=== PATIENT | male | born 1960 | race American Indian/Alaskan Native ===

== ENCOUNTER 2017-12-14 15:50 | Emergency (ER) | payer OTHER ==
[2017-12-14 16:05] VITALS: BP 113/80
[2017-12-14] MEDS ORDERED: MOTRIN PO ONE (17:08)
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
== END 2017-12-14 17:30 | disposition home or self-care (01) ==
LOC: ED 15:50
DX: S39.012A Strain of muscle, fascia and tendon of lower back, initial encounter (principal); S13.4XXA Sprain of ligaments of cervical spine, initial encounter; F17.200 Nicotine dependence, unspecified, uncomplicated; E11.9 Type 2 diabetes mellitus without complications; V49.50XA Passenger injured in collision with unspecified motor vehicles in traffic accident, initial encounter; Y93.89 Activity, other specified; Y92.89 Other specified places as the place of occurrence of the external cause; Y99.8 Other external cause status
CPT/HCPCS: 99283

== ENCOUNTER 2020-12-23 19:40 | Emergency (ER) | payer OTHER ==
[2020-12-23] MEDS ORDERED: oxyCODONE /ACETAMINOPHEN 5-325MG TAB PO ONE (22:47)
[2020-12-23] MEDS ORDERED: dexAMETHasone 20 MG/5 ML VIAL IV ONE (22:47)
[2020-12-23] MEDS ORDERED: KETOROLAC 30 MG/1 ML INJ IV ONE (22:47)
[2020-12-23] MEDS ORDERED: ONDANSETRON 4 MG/2 ML INJ IV ONE (22:48)
--- NOTE | 2020-12-24 00:34 | Emergency Department Report ---
ED Extremity Problem HPI - General Chief complaint: Extremity Injury, Lower Stated complaint: LEFT LEG PAIN Source: patient Mode of arrival: Wheelchair Limitations: No Limitations - History of Present Illness Initial comments: Patient is a 60-year-old -Citizen Of [place] male with a history of chronic pain due to MS, lpi-gfnhmag-ljbfuhlll diabetes, chronic neuropathy who presents to the ED with complaint of acute onset persistent severe nontraumatic left thigh pain persistent for the last 1 week, worse in the last 2 days. Patient states that the pain is worse with any ambulation or any active range of motion. Patient states that he has been taking medications at home including tramadol, Tylenol with no relief. Patient states that 5 mg of Percocet 2 days ago which helped him sleep better and states that he had had this medicine for a month previous injury but now has no other Percocet left. Patient states that he does not go to any pain clinic but is evaluated and under the care of a neurologist for his chronic MS. Patient denies chest pain, shortness of breath, fever, chills, traumatic injury, heavy lifting, nausea and vomiting, numbness and tingling or weakness of lower extremities bilaterally, fever, chills, hip pain, back pain or abdominal pain. MD Complaint: extremity pain (Left thigh pain, h/o chronic pain due to MS) -: Sudden, week(s) (1) Location: lower extremity (left thigh diffusely) History of Same: Yes (chronic pain) -: Yes myalgia, Yes arthralgia, No associated dyspnea, No associated chest pain Severity scale (0 -10): 8 Quality: aching, sharp Consistency: constant Improves with: nothing Worsens with: weight bearing, walking, exertion, palpation Associated Symptoms: denies other symptoms, myalgias, arthralgias. denies: chest pain, shortness of breath, fever, rash, other - Related Data Previous Rx's Medication Instructions Recorded Last Taken Type Cyclobenzaprine [Flexeril] 10 mg PO QHS PRN #7 tablet 12/14/17 Unknown Rx Ibuprofen [Motrin] 600 mg PO Q8H PRN #30 tablet 12/14/17 Unknown Rx Naproxen 500 mg PO Q12H PRN #30 tablet 12/24/20 Unknown Rx carisoprodoL [Soma] 350 mg PO Q8H PRN #24 tablet 12/24/20 Unknown Rx predniSONE [Deltasone] 40 mg PO QDAY #12 tab 12/24/20 Unknown Rx Allergies Allergy/AdvReac Type Severity Reaction Status Date / Time No Known Allergies Allergy Unverified 12/14/17 16:04 ED Review of Systems ROS: Stated complaint: LEFT LEG PAIN Other details as noted in HPI Constitutional: denies: chills, fever Eyes: denies: eye pain, eye discharge, vision change ENT: denies: ear pain, throat pain Respiratory: denies: cough, shortness of breath, wheezing Cardiovascular: denies: chest pain, palpitations Endocrine: no symptoms reported Gastrointestinal: denies: abdominal pain, nausea, diarrhea Genitourinary: denies: urgency, dysuria Musculoskeletal: back pain, arthralgia (left thigh and leg pain), myalgia. denies: joint swelling Skin: denies: rash, lesions Neurological: denies: headache, weakness, paresthesias Psychiatric: denies: anxiety, depression Hematological/Lymphatic: denies: easy bleeding, easy bruising ED Past Medical Hx - Past Medical History Hx Diabetes: Yes Additional medical history: Neuropathy pain. Gait unsteady, sciatic nerve pain - Surgical History Additional Surgical History: Tonsillectomy - Social History Smoking Status: Current Every Day Smoker Substance Use Type: Alcohol - Medications Home Medications: Home Medications Medication Instructions Recorded Confirmed Last Taken Type Cyclobenzaprine [Flexeril] 10 mg PO QHS PRN #7 tablet 12/14/17 Unknown Rx Ibuprofen [Motrin] 600 mg PO Q8H PRN #30 tablet 12/14/17 Unknown Rx Naproxen 500 mg PO Q12H PRN #30 tablet 12/24/20 Unknown Rx carisoprodoL [Soma] 350 mg PO Q8H PRN #24 tablet 12/24/20 Unknown Rx predniSONE [Deltasone] 40 mg PO QDAY #12 tab 12/24/20 Unknown Rx ED Physical Exam - General Limitations: No Limitations General appearance: alert, in no apparent distress - Head Head exam: Present: atraumatic, normocephalic, normal inspection - Eye Eye exam: Present: normal appearance, PERRL, EOMI Pupils: Present: normal accommodation - ENT ENT exam: Present: normal exam, normal orophraynx, mucous membranes moist, TM's normal bilaterally, normal external ear exam - Neck Neck exam: Present: normal inspection, full ROM - Respiratory Respiratory exam: Present: normal lung sounds bilaterally. Absent: respiratory distress, wheezes, rhonchi, chest wall tenderness, accessory muscle use, decreased breath sounds - Cardiovascular Cardiovascular Exam: Present: normal rhythm, tachycardia, normal heart sounds. Absent: systolic murmur, diastolic murmur, rubs, gallop - GI/Abdominal GI/Abdominal exam: Present: soft, normal bowel sounds. Absent: tenderness, guarding, hyperactive bowel sounds, hypoactive bowel sounds, organomegaly - Extremities Exam Extremities exam: Present: normal inspection, full ROM, tenderness (Palpable diffuse left thigh tenderness), normal capillary refill. Absent: pedal edema, joint swelling, calf tenderness - Back Exam Back exam: Present: normal inspection, full ROM, tenderness (Palpable lumbosacral paraspinal musculoskeletal tenderness), muscle spasm, paraspinal tenderness. Absent: CVA tenderness (R), CVA tenderness (L), vertebral tenderness - Neurological Exam Neurological exam: Present: alert, oriented X3, CN II-XII intact, normal gait, reflexes normal - Psychiatric Psychiatric exam: Present: normal affect, normal mood - Skin Skin exam: Present: warm, dry, intact, normal color. Absent: rash ED Course Vital Signs 12/23/20 12/24/20 12/24/20 22:37 00:02 00:06 Temperature 97.9 F Pulse Rate 105 H Respiratory 18 16 16 Rate Blood Pressure 162/93 [Right] O2 Sat by Pulse 97 Oximetry ED Medical Decision Making - Radiology Data Radiology results: report reviewed, image reviewed [facility] [address] [place] [address] Vascular Lab Report Signed Patient: RAUL LAMAR MR#: [id number] : 1960 Acct:[id number] Age/Sex: 60 / M ADM Date: 12/23/20 Loc: ED Attending Dr: Ordering Physician: ADI ROSALES Date of Service: 12/23/20 Procedure(s): VL venous duplex LE LT Accession Number(s): [id number] cc: ADI ROSALES DUPLEX DOPPLER LOWER EXTREMITY VEINS, LEFT INDICATION: Left thigh pain. TECHNIQUE: Duplex doppler imaging was performed through the veins of the left lower extremity using venous compression and other maneuvers. COMPARISON: No relevant prior imaging study available. FINDINGS: Left Common femoral vein: Negative. Left Superficial femoral vein: Negative. Left Popliteal vein: Negative. Left Calf veins: Negative. Additional findings: None.. IMPRESSION: 1. No sonographic evidence for DVT in the left lower extremity. Signer Name: Dakota Arellano MD Signed: 12/24/2020 12:35 AM Workstation Name: [id number] Transcribed By: LARS Dictated By: Dakota Arellano MD Electronically Authenticated By: Dakota Arellano MD Signed Date/Time: 12/24/2034 DD/ TD/TT: - Medical Decision Making This is a 60-year-old -Citizen Of [place] male with a history of chronic pain due to MS, izi-sstpiuk-molpqxzlz diabetes, chronic neuropathy who presents to the ED with complaint of acute onset persistent severe nontraumatic left thigh pain persistent for the last 1 week, worse in the last 2 days. Patient states that the pain is worse with any ambulation or any active range of motion. Patient states that he has been taking medications at home including tramadol, Tylenol with no relief. Patient states that 5 mg of Percocet 2 days ago which helped him sleep better and states that he had had this medicine for a month previous injury but now has no other Percocet left. Patient states that he does not go to any pain clinic but is evaluated and under the care of a neurologist for his chronic MS. in the ED, patient is alert and oriented x3 and is not in distress but appears to be in pain, is afebrile and tachycardic in triage. Patient was treated for pain in the ED and left leg Doppler ultrasound showed no sonographic evidence of DVT. On reevaluation, patient's pain is well controlled medications, and felt better and his tachycardia also resolved. Patient was therefore discharged home on medications and was advised to follow-up with his regular primary care physician in 7 to 10 days for reevaluation. Patient was also advised to consider going to pain clinic to control his chronic pain. Patient is advised return to the ED immediately if symptoms get worse. - Differential Diagnosis DVT; muscle strain; muscle spasm; chronic pain; tendinitis Critical care attestation.: If time is entered above; I have spent that time in minutes in the direct care of this critically ill patient, excluding procedure time. ED Disposition Clinical Impression: Chronic pain syndrome, Muscle spasm of left lower extremity Muscle strain of left thigh Qualifiers: Encounter type: initial encounter Qualified Code(s): S76.912A - Strain of unspecified muscles, fascia and tendons at thigh level, left thigh, initial encounter Disposition: TO HOME OR SELFCARE Is pt being admited?: No Does the pt Need Aspirin: No Condition: Stable Instructions: Muscle Cramps and Spasms, [id number], Muscle Cramps and Spasms, Muscle Strain, [id number], Chronic Pain, Adult, Hamstring Strain Rehab- [facility] Additional Instructions: Take medication with food, drink plenty of fluids and follow-up with your primary care physician in 5 to 7 days for reevaluation. Return to the ED immediately if symptoms get worse. Prescriptions: predniSONE [Deltasone] 40 mg PO QDAY #12 tab Naproxen 500 mg PO Q12H PRN #30 tablet PRN Reason: Pain , Severe (7-10) carisoprodoL [Soma] 350 mg PO Q8H PRN #24 tablet PRN Reason: Muscle Spasm Referrals: [facility] [Provider Group] - 3-5 Days Time of Disposition: 00:33 Print Language: ITALIAN
--- NOTE | 2020-12-24 00:39 | Vascular Lab Report ---
DUPLEX DOPPLER LOWER EXTREMITY VEINS, LEFT INDICATION: Left thigh pain. TECHNIQUE: Duplex doppler imaging was performed through the veins of the left lower extremity using venous compr ession and other maneuvers. COMPARISON: No relevant prior imaging study available. FINDINGS: Left Common femoral vein: Negative. Left Superficial femoral vein: Negative. Left Popliteal vein: Negative. Left Calf veins: Negative. Additional findings: None.. IMPRESSION: 1. No sonographic evidence for DVT in the left lower extremity. Signer Name: Dakota Arellano MD Signed: 12/24/2020 12:35 AM Workstation Name: [id number]
[2020-12-24 02:07] VITALS: BP 153/91
== END 2020-12-24 02:06 | disposition home or self-care (01) ==
LOC: ED 19:40
DX: S76.912A Strain of unspecified muscles, fascia and tendons at thigh level, left thigh, initial encounter (principal); M62.838 Other muscle spasm; G89.4 Chronic pain syndrome; F17.200 Nicotine dependence, unspecified, uncomplicated; E11.9 Type 2 diabetes mellitus without complications; Z79.899 Other long term (current) drug therapy; Z90.49 Acquired absence of other specified parts of digestive tract; X58.XXXA Exposure to other specified factors, initial encounter; Y93.89 Activity, other specified; Y92.89 Other specified places as the place of occurrence of the external cause; Y99.8 Other external cause status
CPT/HCPCS: 93971; 96374; 96375; 99284; J1100; J1885; J2405

== ENCOUNTER 2021-08-05 11:31 | Emergency (ER) | payer OTHER ==
[2021-08-05] MEDS ORDERED: SODIUM CHLORIDE 0.9% 1000 ML 1,000 ML IV ONE (12:54)
[2021-08-05] MEDS ORDERED: ONDANSETRON 4 MG/2 ML INJ IV ONE (12:54)
[2021-08-05] MEDS ORDERED: methylPREDNISolone Sod Succinate 125 MG/2 ML INJ IV ONE (12:54)
[2021-08-05] MEDS ORDERED: MORPHINE 4 MG/1 ML INJ IV ONE (12:54)
[2021-08-05] MEDS ORDERED: GABAPENTIN 100 MG CAP PO ONE (12:55)
--- NOTE | 2021-08-05 13:55 | Emergency Department Report ---
ED General Adult HPI - General Chief complaint: High BP Stated complaint: leg pain/HTN Time Seen by Provider: 08/05/21 12:40 Source: EMS Mode of arrival: Stretcher Limitations: No Limitations - History of Present Illness Initial comments: Patient presents to the emergency department the chief complaint of body pain. Patient has a history of MS and states that he has had worsening pain over the last week. Patient also complains of not having a bowel movement today but states he had a complete bowel movement yesterday. Patient denies abdominal pain or chest pain. Patient states 2 days ago he ran out of his gabapentin which he thinks exacerbated his pain. He denies any shortness of breath or headache. -: Gradual Severity scale (0 -10): 6 Quality: aching, other (Throbbing) Consistency: constant Improves with: none Worsens with: none Associated Symptoms: denies other symptoms, nausea/vomiting - Related Data Home Medications Medication Instructions Recorded Confirmed Last Taken Alpha Lipoic Acid 600 mg PO BID 08/05/21 08/05/21 Unknown Duloxetine HCl [Cymbalta] 60 mg PO DAILY 08/05/21 08/05/21 Unknown Insulin NPH Human Isophane 08/05/21 Unknown [Humulin N] Metformin HCl [metFORMIN] 1,000 mg PO BID 08/05/21 08/05/21 Unknown Rosuvastatin Calcium [Crestor] 20 mg PO HS 08/05/21 08/05/21 Unknown Tamsulosin [Flomax] 0.4 mg PO DAILY 08/05/21 08/05/21 Unknown riTUXimab [Rituxan] 10 mg IV UNK 08/05/21 08/05/21 Unknown traMADoL [Ultram] 50 mg PO BID 08/05/21 08/05/21 Unknown Previous Rx's Medication Instructions Recorded Last Taken Type Cyclobenzaprine [Flexeril] 10 mg PO QHS PRN #7 tablet 12/14/17 08/04/21 20:00 Rx Ibuprofen [Motrin] 600 mg PO Q8H PRN #30 tablet 12/14/17 Unknown Rx Naproxen 500 mg PO Q12H PRN #30 tablet 12/24/20 Unknown Rx Gabapentin 600 mg PO TID #60 cap 08/05/21 Unknown Rx HYDROcodone/APAP 5-325 [[place] 1 each PO Q6HR PRN #12 tablet 08/05/21 Unknown Rx 5/325] Magnesium Citrate [Citrate of 300 ml PO NOW #1 bottle 08/05/21 Unknown Rx Magnesia] Promethazine [Phenergan TAB] 25 mg PO Q6HR PRN #20 tab 08/05/21 Unknown Rx Sennosides/Docusate Sodium [Senna 1 each PO QHS #30 tablet 08/05/21 Unknown Rx Plus 8.6-50 mg Tablet] predniSONE [Deltasone] 20 mg PO DAILY #15 tablet 08/05/21 Unknown Rx Allergies Allergy/AdvReac Type Severity Reaction Status Date / Time No Known Allergies Allergy Verified 08/05/21 11:37 ED Review of Systems ROS: Stated complaint: leg pain/HTN Other details as noted in HPI Constitutional: denies: chills, fever Eyes: denies: eye pain, eye discharge, vision change ENT: denies: ear pain, throat pain Respiratory: denies: cough, shortness of breath, wheezing Cardiovascular: denies: chest pain, palpitations Endocrine: no symptoms reported Gastrointestinal: nausea. denies: abdominal pain, diarrhea Genitourinary: denies: urgency, dysuria Musculoskeletal: denies: back pain, joint swelling, arthralgia Skin: denies: rash, lesions Neurological: denies: headache, weakness, paresthesias Psychiatric: denies: anxiety, depression Hematological/Lymphatic: denies: easy bleeding, easy bruising ED Past Medical Hx - Past Medical History Hx Diabetes: Yes Additional medical history: Neuropathy pain. Gait unsteady, sciatic nerve pain. Multipe Sclerosis - Surgical History Additional Surgical History: Tonsillectomy - Social History Smoking Status: Never Smoker Substance Use Type: Marijuana - Medications Home Medications: Home Medications Medication Instructions Recorded Confirmed Last Taken Type Cyclobenzaprine [Flexeril] 10 mg PO QHS PRN #7 tablet 12/14/17 08/04/21 20:00 Rx Ibuprofen [Motrin] 600 mg PO Q8H PRN #30 tablet 12/14/17 Unknown Rx Naproxen 500 mg PO Q12H PRN #30 tablet 12/24/20 Unknown Rx Alpha Lipoic Acid 600 mg PO BID 08/05/21 08/05/21 Unknown History Duloxetine HCl [Cymbalta] 60 mg PO DAILY 08/05/21 08/05/21 Unknown History Gabapentin 600 mg PO TID #60 cap 08/05/21 Unknown Rx HYDROcodone/APAP 5-325 [[place] 1 each PO Q6HR PRN #12 tablet 08/05/21 Unknown Rx 5/325] Insulin NPH Human Isophane 08/05/21 Unknown History [Humulin N] Magnesium Citrate [Citrate of 300 ml PO NOW #1 bottle 08/05/21 Unknown Rx Magnesia] Metformin HCl [metFORMIN] 1,000 mg PO BID 08/05/21 08/05/21 Unknown History Promethazine [Phenergan TAB] 25 mg PO Q6HR PRN #20 tab 08/05/21 Unknown Rx Rosuvastatin Calcium [Crestor] 20 mg PO HS 08/05/21 08/05/21 Unknown History Sennosides/Docusate Sodium [Senna 1 each PO QHS #30 tablet 08/05/21 Unknown Rx Plus 8.6-50 mg Tablet] Tamsulosin [Flomax] 0.4 mg PO DAILY 08/05/21 08/05/21 Unknown History predniSONE [Deltasone] 20 mg PO DAILY #15 tablet 08/05/21 Unknown Rx riTUXimab [Rituxan] 10 mg IV UNK 08/05/21 08/05/21 Unknown History traMADoL [Ultram] 50 mg PO BID 08/05/21 08/05/21 Unknown History ED Physical Exam - General Limitations: No Limitations General appearance: alert, in no apparent distress - Head Head exam: Present: atraumatic, normocephalic - Eye Eye exam: Present: normal appearance - ENT ENT exam: Present: mucous membranes dry - Neck Neck exam: Present: normal inspection - Respiratory Respiratory exam: Present: normal lung sounds bilaterally. Absent: respiratory distress - Cardiovascular Cardiovascular Exam: Present: regular rate, normal rhythm. Absent: systolic murmur, diastolic murmur, rubs, gallop - GI/Abdominal GI/Abdominal exam: Present: soft, normal bowel sounds, other (Hyperresonant to percussion over the ascending, transverse, descending colon). Absent: distended, tenderness - Rectal Rectal exam: Present: deferred - Extremities Exam Extremities exam: Present: normal inspection - Back Exam Back exam: Present: normal inspection - Neurological Exam Neurological exam: Present: alert, oriented X3, CN II-XII intact. Absent: motor sensory deficit - Psychiatric Psychiatric exam: Present: normal affect, normal mood - Skin Skin exam: Present: warm, dry, intact, normal color. Absent: rash ED Course Vital Signs 08/05/21 08/05/21 08/05/21 11:44 12:21 13:17 Temperature 98.0 F 99.2 F 98.9 F Pulse Rate 98 H 126 H Respiratory 16 16 15 Rate Blood Pressure 144/85 Blood Pressure 164/91 [Left] Blood Pressure 157/85 [Right] O2 Sat by Pulse 98 98 Oximetry 08/05/21 14:37 Temperature Pulse Rate Respiratory 16 Rate Blood Pressure Blood Pressure [Left] Blood Pressure [Right] O2 Sat by Pulse Oximetry ED Medical Decision Making - Radiology Data Radiology results: report reviewed - Medical Decision Making Discussed results and plan of care with patient Critical care attestation.: If time is entered above; I have spent that time in minutes in the direct care of this critically ill patient, excluding procedure time. ED Disposition Clinical Impression: Multiple sclerosis exacerbation, Constipation Disposition: HOME / SELF CARE / HOMELESS Is pt being admited?: No Does the pt Need Aspirin: No Condition: Stable Instructions: Constipation, Adult, Multiple Sclerosis Additional Instructions: return if worse Prescriptions: Sennosides/Docusate Sodium [Senna Plus 8.6-50 mg Tablet] 1 each PO QHS #30 tablet Magnesium Citrate [Citrate of Magnesia] 300 ml PO NOW #1 bottle predniSONE [Deltasone] 20 mg PO DAILY #15 tablet HYDROcodone/APAP 5-325 [[place] 5/325] 1 each PO Q6HR PRN #12 tablet PRN Reason: Pain Referrals: RIGO CARRENO [Other] - 3-5 Days CHANDANA GU MD [Staff Physician] - 3-5 Days Time of Disposition: 15:50
--- NOTE | 2021-08-05 14:34 | XRay Report ---
Abdominal series, single view chest x-ray. INDICATION / CLINICAL INFORMATION: constipation. COMPARISON: None available. FINDINGS: Cardiac silhouette is mildly enlarged. No focal pulmonary consolidation or edema. No pleural effusion or pneumothorax. TUBES / LINES: None. BOWEL GAS PATTERN: No gas-distended loops of intestines. Large colonic fecal load. FREE AIR / EXTRALUMINAL GAS: None seen. ADDITIONAL FINDINGS: Dextroconvex curvature of the lumbar spine, possibly positional. IMPRESSION: Large colonic fecal load is suggestive of constipation. Mildly enlarged cardiac silhouette. Signer Name: Delgado Martinez MD Signed: 08/05/2021 2:29 PM Workstation Name: [id number]
[2021-08-05] MEDS ORDERED: HYDROcodone/ACETAMINOPHEN 10-325MG TAB PO ONE (15:43)
[2021-08-05 18:40] VITALS: BP 164/91
== END 2021-08-05 18:40 | disposition home or self-care (01) ==
LOC: ED 11:31
DX: K59.00 Constipation, unspecified (principal); G35 Multiple sclerosis; E11.9 Type 2 diabetes mellitus without complications
CPT/HCPCS: 74022; 96361; 96374; 96375; 99284; J2270; J2405; J2930; J7030; Q0162